=== PATIENT | female | born 1935 | race Caucasian/White ===

== ENCOUNTER → 2017-01-09 | Outpatient (CLI) | payer MEDICARE, OTHER ==
[~2017-01-09] MED LIST: ALLERGY RELIEF10 M1 PO; COLACE100 MG PO; LIPITOR10 MG PO; METFORMIN HCL1000 MG PO; SYNTHROID75 MCG PO; SYSTANE ULTRA 015 ML RIGHT EYE; TYLENOL EXTRA500 MG PO
== END | disposition home or self-care (01) ==
LOC: CDC 11:27
DX: Z01.810 Encounter for preprocedural cardiovascular examination (principal)
CPT/HCPCS: 93000

== ENCOUNTER 2017-01-14 09:33 | Inpatient (IN) | payer OTHER ==
[~2017-01-14] VITALS: Ht 157.5 cm; Wt 51.2 kg
[2017-01-14 10:13] VITALS: BP 144/78
[2017-01-14 10:49] LABS: ANION GAP 12 MEQ/L (2-14); CHLORIDE 95 MEQ/L (99-109); POTASSIUM 4.3 MEQ/L (3.7-5.4); SAMPLE HEMOLYSIS CHECK 0; SAMPLE ICTERIC CHECK 0; SAMPLE LIPEMIA CHECK 0; SODIUM 134 MEQ/L (136-147)
[2017-01-14 10:54] LABS: GFR ESTIMATE (CALCULATED) > 59 mL/min/; GLUCOSE 117 mg/dL (70-99); UREA NITROGEN (BUN) 15 mg/dL (9-23)
[2017-01-14 16:55] LABS: POINT-OF-CARE METER ID UU13113675
[2017-01-14 20:14] LABS: HEMATOCRIT 39.6 % (36.0-46.0)
[2017-01-14 20:15] VITALS: BP 120/69
[2017-01-14 20:18] LABS: MCV 88.6 FL (83-99)
[2017-01-14 23:35] VITALS: BP 111/55
[2017-01-15] VITALS (7 sets, daily range): BP systolic 117–127; BP diastolic 56–61
[2017-01-15 06:20] LABS: HEMATOCRIT 34.4 % (36.0-46.0); MCH 28.1 PG (29.0-34.0); MCHC 33.1 G/DL (30.0-36.0); MCV 84.9 FL (83-99); MEAN PLAT.VOLUME 9.6 uM^3 (9.5-12.4); RBC DIS.WIDTH-CV 15.1 % (11.8-14.6); RBC DIS.WIDTH-SD 47.4 % (39-53); RED BLOOD COUNT 4.05 M/uL (3.80-5.20); WHITE BLOOD COUNT 15.8 K/uL (4.1-10.2)
[2017-01-15 06:24] LABS: PLATELET COUNT 263 K/uL (156-360)
[2017-01-15 06:51] LABS: ANION GAP 8 MEQ/L (2-14); GFR ESTIMATE (CALCULATED) 51 mL/min/; GLUCOSE 124 mg/dL (70-99); POTASSIUM 4.7 MEQ/L (3.7-5.4); SAMPLE HEMOLYSIS CHECK 0; SAMPLE ICTERIC CHECK 0; SAMPLE LIPEMIA CHECK 0; SODIUM 136 MEQ/L (136-147); UREA NITROGEN (BUN) 18 mg/dL (9-23)
[2017-01-15 06:54] LABS: CHLORIDE 105 MEQ/L (99-109)
[2017-01-16 04:00] VITALS: BP 126/58
[2017-01-16 06:23] LABS: POINT-OF-CARE METER ID UU13113725
[2017-01-16 07:10] VITALS: BP 132/60
[2017-01-16 10:34] LABS: BASOPHIL COUNT 0.1 K/uL (0-0.1); EOSINOPHIL COUNT 0.5 K/uL (0-0.3); HEMATOCRIT 28.4 % (36.0-46.0); IMMATURE GRANULOCYTE (%) 0.8 % (0.0-0.7); IMMATURE GRANULOCYTE COUNT 0.1 K/uL; INSTRUMENT ABS NEUTROPHIL CT 14.3 K/uL; LYMPHOCYTE COUNT 1.5 K/uL (1.0-2.8); MCH 28.1 PG (29.0-34.0); MCHC 33.1 G/DL (30.0-36.0); MCV 84.8 FL (83-99); MEAN PLAT.VOLUME 9.3 uM^3 (9.5-12.4); MONOCYTE (%) 5.6 % (3-12); NEUTROPHIL (%) 81.9 % (45-76); NEUTROPHIL COUNT 14.3 K/uL (1.8-6.4); PLATELET COUNT 291 K/uL (156-360); RBC DIS.WIDTH-CV 15.8 % (11.8-14.6); RED BLOOD COUNT 3.35 M/uL (3.80-5.20); WHITE BLOOD COUNT 17.5 K/uL (4.1-10.2)
[2017-01-16 10:59] LABS: ANION GAP 8 MEQ/L (2-14); CHLORIDE 102 MEQ/L (99-109); GFR ESTIMATE (CALCULATED) > 59 mL/min/; GLUCOSE 96 mg/dL (70-99); POTASSIUM 4.2 MEQ/L (3.7-5.4); SAMPLE HEMOLYSIS CHECK 0; SAMPLE ICTERIC CHECK 0; SAMPLE LIPEMIA CHECK 0; SODIUM 135 MEQ/L (136-147); UREA NITROGEN (BUN) 19 mg/dL (9-23)
[2017-01-16 11:10] VITALS: BP 134/63
[2017-01-16 15:30] VITALS: BP 130/61
[2017-01-16 16:45] LABS: POINT-OF-CARE METER ID UU13113725
[2017-01-16 18:15] LABS: POINT-OF-CARE METER ID UU13113725
[2017-01-16 19:38] VITALS: BP 143/71
[2017-01-17 00:39] VITALS: BP 136/71
[2017-01-17 01:14] LABS: POINT-OF-CARE METER ID UU13113725
[2017-01-17 04:26] VITALS: BP 141/68
[2017-01-17 05:38] LABS: POINT-OF-CARE METER ID UU13113725
[2017-01-17 07:20] VITALS: BP 137/66
[2017-01-17 09:35] LABS: MCH 28.6 PG (29.0-34.0); MCHC 34.2 G/DL (30.0-36.0); MCV 83.6 FL (83-99); MEAN PLAT.VOLUME 9.1 uM^3 (9.5-12.4); PLATELET COUNT 324 K/uL (156-360); RBC DIS.WIDTH-CV 16.1 % (11.8-14.6); RBC DIS.WIDTH-SD 49.1 % (39-53); RED BLOOD COUNT 3.11 M/uL (3.80-5.20)
[2017-01-17 10:01] LABS: ANION GAP 6 MEQ/L (2-14); CHLORIDE 99 MEQ/L (99-109); GFR ESTIMATE (CALCULATED) > 59 mL/min/; POTASSIUM 3.6 MEQ/L (3.7-5.4); SAMPLE HEMOLYSIS CHECK 0; SAMPLE ICTERIC CHECK 0; SAMPLE LIPEMIA CHECK 0; SODIUM 133 MEQ/L (136-147); UREA NITROGEN (BUN) 15 mg/dL (9-23)
[2017-01-17 10:03] LABS: GLUCOSE 173 mg/dL (70-99)
[2017-01-17 10:15] LABS: EOSINOPHIL (%) 2.4 % (0-5); EOSINOPHIL COUNT 0.4 K/uL (0-0.3); IMMATURE GRANULOCYTE (%) 1.3 % (0.0-0.7); IMMATURE GRANULOCYTE COUNT 0.2 K/uL; INSTRUMENT ABS NEUTROPHIL CT 13.5 K/uL; LYMPHOCYTE COUNT 1.2 K/uL (1.0-2.8); MONOCYTE (%) 4.3 % (3-12); MONOCYTE COUNT 0.7 K/uL (0-0.8); NEUTROPHIL (%) 84.5 % (45-76); NEUTROPHIL COUNT 13.5 K/uL (1.8-6.4); PLAT.SUFFICIENCY ADEQUATE
[2017-01-17 12:08] LABS: POINT-OF-CARE METER ID UU13113725
[2017-01-17 16:05] VITALS: BP 159/67
[2017-01-17 23:25] VITALS: BP 140/72
[2017-01-18 00:26] LABS: POINT-OF-CARE METER ID UU13113725
[2017-01-18 03:41] VITALS: BP 132/69
[2017-01-18 05:50] LABS: POINT-OF-CARE METER ID UU13113725
[2017-01-18 06:22] LABS: HEMATOCRIT 26.4 % (36.0-46.0); MCH 27.9 PG (29.0-34.0); MCHC 32.6 G/DL (30.0-36.0); MCV 85.7 FL (83-99); NRBC (%) 0.2 /100 WBC (0-0); RBC DIS.WIDTH-CV 16.1 % (11.8-14.6); RBC DIS.WIDTH-SD 50.4 % (39-53); RED BLOOD COUNT 3.08 M/uL (3.80-5.20); WHITE BLOOD COUNT 14.6 K/uL (4.1-10.2)
[2017-01-18 06:45] LABS: ALKALINE PHOSPHATASE 96 IU/L (3-129); ANION GAP 5 MEQ/L (2-14); ANION GAP 7 MEQ/L (2-14); CHLORIDE 97 MEQ/L (99-109); CHLORIDE 99 MEQ/L (99-109); DIRECT BILIRUBIN 0.3 mg/dL (0.0-0.3); GFR ESTIMATE (CALCULATED) > 59 mL/min/; GLUCOSE 147 mg/dL (70-99); GLUCOSE 149 mg/dL (70-99); MAGNESIUM 1.8 mg/dl (1.3-2.7); POTASSIUM 3.3 MEQ/L (3.7-5.4); POTASSIUM 3.5 MEQ/L (3.7-5.4); SAMPLE HEMOLYSIS CHECK 0; SAMPLE ICTERIC CHECK 0; SAMPLE LIPEMIA CHECK 0; SODIUM 131 MEQ/L (136-147); SODIUM 134 MEQ/L (136-147); TOTAL BILIRUBIN 0.6 MG/DL (0.0-1.0); TRIGLYCERIDES 108 MG/DL (Normal: <150); UREA NITROGEN (BUN) 10 mg/dL (9-23)
[2017-01-18 06:49] LABS: PREALBUMIN 3.2 mg/dL (10-40)
[2017-01-18 07:18] LABS: ANISOCYTOSIS 1+; BAND NEUTROPHILS 1.8 % (0-8.0); EOSINOPHIL ABS CT 0.9; EOSINOPHILS 6.1 % (0-5.0); HYPOCHROMASIA 1+; LYMPHOCYTES 4.4 % (15.0-45.0); MEAN PLAT.VOLUME 9.9 uM^3 (9.5-12.4); METAMYELOCYTES 0.9 %; OVALOCYTES 1+; PLAT.SUFFICIENCY ADEQUATE; PLATELET COUNT 374 K/uL (156-360); POIKILOCYTOSIS 1+; POLYCHROMASIA 1+; SEG.NEUTROPHILS 80.7 % (46.0-76.0)
[2017-01-18 08:02] VITALS: BP 142/64
[2017-01-18 12:00] VITALS: BP 142/68
[2017-01-18 16:00] VITALS: BP 145/69
[2017-01-18 17:05] LABS: POINT-OF-CARE METER ID UU13113725
[2017-01-18 19:28] VITALS: BP 137/66
[2017-01-18 23:09] VITALS: BP 131/61
[2017-01-19 03:32] VITALS: BP 132/64
[2017-01-19 06:20] LABS: HEMATOCRIT 28.7 % (36.0-46.0); MCH 28.3 PG (29.0-34.0); MCHC 33.1 G/DL (30.0-36.0); MCV 85.4 FL (83-99); MEAN PLAT.VOLUME 9.5 uM^3 (9.5-12.4); PLATELET COUNT 518 K/uL (156-360); RBC DIS.WIDTH-CV 16.3 % (11.8-14.6); RBC DIS.WIDTH-SD 51.1 % (39-53); RED BLOOD COUNT 3.36 M/uL (3.80-5.20); WHITE BLOOD COUNT 17.6 K/uL (4.1-10.2)
[2017-01-19 06:43] LABS: ANION GAP 7 MEQ/L (2-14); CHLORIDE 99 MEQ/L (99-109); GFR ESTIMATE (CALCULATED) > 59 mL/min/; GLUCOSE 166 mg/dL (70-99); MAGNESIUM 1.6 mg/dl (1.3-2.7); POTASSIUM 3.7 MEQ/L (3.7-5.4); SAMPLE HEMOLYSIS CHECK 0; SAMPLE ICTERIC CHECK 0; SAMPLE LIPEMIA CHECK 0; SODIUM 133 MEQ/L (136-147); TOTAL BILIRUBIN 0.5 MG/DL (0.0-1.0); UREA NITROGEN (BUN) 7 mg/dL (9-23)
[2017-01-19 06:47] LABS: ALKALINE PHOSPHATASE 158 IU/L (3-129)
[2017-01-19 07:02] LABS: ABS NEUTROPHIL COUNT 13.1; ACANTHOCYTES 1+; ATYPICAL LYMPHOCYTE 0.9 %; EOSINOPHIL ABS CT 0.6; EOSINOPHILS 3.5 % (0-5.0); HYPOCHROMASIA 1+; INSTRUMENT ABS NEUTROPHIL CT 12.1 K/uL; LYMPHOCYTES 5.3 % (15.0-45.0); METAMYELOCYTES 0.9 %; OVALOCYTES 1+; PLAT.SUFFICIENCY INCREASED; POIKILOCYTOSIS 1+; SEG.NEUTROPHILS 74.5 % (46.0-76.0)
[2017-01-19 08:46] VITALS: BP 147/71
[2017-01-19 16:23] VITALS: BP 149/67
[2017-01-19 20:13] LABS: ADD MIUA? YES; BILIRUBIN NEGATIVE; BLOOD NEGATIVE; COLOR YELLOW ((YELLOW)); GLUCOSE (STRIP) NEGATIVE; KETONES NEGATIVE; LEUKOCYTES SMALL; NITRITE NEGATIVE; PROTEIN (STRIP) NEGATIVE; SPECIFIC GRAVITY 1.011 (1.000-1.030); UROBILINOGEN 0.2 MG/DL (0.2-1.0)
[2017-01-19 20:36] LABS: BACTERIA NONE SEEN /HPF; EPITHELIAL CELLS 1+ /HPF; MUCUS TRACE /LPF; RED BLOOD CELLS 0-5 /HPF (0-5); UCUL ADDED? NO; WHITE BLOOD CELLS CLUMP RARE /HPF (0-5)
[2017-01-19 21:29] LABS: POINT-OF-CARE METER ID UU13113725
[2017-01-19 23:40] VITALS: BP 125/71
[2017-01-20 03:51] VITALS: BP 136/71
[2017-01-20 06:33] LABS: POINT-OF-CARE METER ID UU13113725
[2017-01-20 07:22] VITALS: BP 148/70
[2017-01-20 11:05] LABS: BASOPHIL COUNT 0.1 K/uL (0-0.1); EOSINOPHIL (%) 2.3 % (0-5); EOSINOPHIL COUNT 0.4 K/uL (0-0.3); HEMATOCRIT 28.5 % (36.0-46.0); IMMATURE GRANULOCYTE (%) 4.8 % (0.0-0.7); IMMATURE GRANULOCYTE COUNT 0.9 K/uL; INSTRUMENT ABS NEUTROPHIL CT 13.4 K/uL; LYMPHOCYTE COUNT 2.3 K/uL (1.0-2.8); MCH 27.9 PG (29.0-34.0); MCV 84.6 FL (83-99); MEAN PLAT.VOLUME 9.3 uM^3 (9.5-12.4); MONOCYTE (%) 11.3 % (3-12); MONOCYTE COUNT 2.2 K/uL (0-0.8); NEUTROPHIL (%) 69.5 % (45-76); NEUTROPHIL COUNT 13.4 K/uL (1.8-6.4); PLATELET COUNT 691 K/uL (156-360); RBC DIS.WIDTH-CV 16.2 % (11.8-14.6); RBC DIS.WIDTH-SD 49.9 % (39-53); RED BLOOD COUNT 3.37 M/uL (3.80-5.20); WHITE BLOOD COUNT 19.3 K/uL (4.1-10.2)
[2017-01-20 11:22] VITALS: BP 147/68
[2017-01-20 11:40] LABS: ALKALINE PHOSPHATASE 120 IU/L (3-129); ANION GAP 7 MEQ/L (2-14); CHLORIDE 96 MEQ/L (99-109); GFR ESTIMATE (CALCULATED) > 59 mL/min/; GLUCOSE 131 mg/dL (70-99); MAGNESIUM 1.6 mg/dl (1.3-2.7); POTASSIUM 3.6 MEQ/L (3.7-5.4); SAMPLE HEMOLYSIS CHECK 0; SAMPLE ICTERIC CHECK 0; SAMPLE LIPEMIA CHECK 0; SODIUM 132 MEQ/L (136-147); TOTAL BILIRUBIN 0.5 MG/DL (0.0-1.0); UREA NITROGEN (BUN) 5 mg/dL (9-23)
[2017-01-20 18:17] VITALS: BP 153/72
[2017-01-20 18:50] VITALS: BP 158/77
[2017-01-20 21:09] LABS: POINT-OF-CARE METER ID UU13113725
[2017-01-20 23:29] VITALS: BP 154/71
[2017-01-21 02:39] VITALS: BP 130/61
[2017-01-21 02:50] VITALS: BP 155/83
[2017-01-21 06:30] LABS: HEMATOCRIT 27.6 % (36.0-46.0); MCHC 32.6 G/DL (30.0-36.0); MCV 82.9 FL (83-99); MEAN PLAT.VOLUME 9.2 uM^3 (9.5-12.4); NRBC (%) 0.1 /100 WBC (0-0); PLATELET COUNT 724 K/uL (156-360); RBC DIS.WIDTH-CV 15.9 % (11.8-14.6); RBC DIS.WIDTH-SD 49.1 % (39-53); RED BLOOD COUNT 3.33 M/uL (3.80-5.20)
[2017-01-21 07:26] VITALS: BP 137/69
[2017-01-21 15:45] VITALS: BP 142/76
[2017-01-21 21:57] LABS: POINT-OF-CARE METER ID UU13113725
[2017-01-22 01:06] VITALS: BP 137/65
[2017-01-22 06:34] LABS: POINT-OF-CARE METER ID UU13113725
[2017-01-22 07:03] LABS: MCH 28.2 PG (29.0-34.0); MCHC 34.3 G/DL (30.0-36.0); MCV 82.2 FL (83-99); MEAN PLAT.VOLUME 8.9 uM^3 (9.5-12.4); RBC DIS.WIDTH-CV 16.4 % (11.8-14.6); RBC DIS.WIDTH-SD 49.1 % (39-53); RED BLOOD COUNT 3.65 M/uL (3.80-5.20); WHITE BLOOD COUNT 21.1 K/uL (4.1-10.2)
[2017-01-22 07:04] LABS: PLATELET COUNT 947 K/uL (156-360)
[2017-01-22 07:24] LABS: ANION GAP 8 MEQ/L (2-14); CHLORIDE 94 MEQ/L (99-109); GFR ESTIMATE (CALCULATED) > 59 mL/min/; GLUCOSE 121 mg/dL (70-99); MAGNESIUM 1.6 mg/dl (1.3-2.7); SAMPLE HEMOLYSIS CHECK 0; SAMPLE ICTERIC CHECK 0; SAMPLE LIPEMIA CHECK 0; SODIUM 131 MEQ/L (136-147); UREA NITROGEN (BUN) 5 mg/dL (9-23)
[2017-01-22 11:27] VITALS: BP 136/76
[2017-01-22 16:57] LABS: POINT-OF-CARE METER ID UU13113675; POINT-OF-CARE USER ID LABLCH83
[2017-01-22 21:10] LABS: POINT-OF-CARE METER ID UU13113725
[2017-01-22 23:43] VITALS: BP 156/83
[2017-01-23 05:47] LABS: POINT-OF-CARE METER ID UU13113725
[2017-01-23 07:27] VITALS: BP 152/75
[2017-01-23 09:01] LABS: MCH 27.9 PG (29.0-34.0); MCHC 33.2 G/DL (30.0-36.0); MEAN PLAT.VOLUME 8.8 uM^3 (9.5-12.4); PLATELET COUNT 953 K/uL (156-360); RBC DIS.WIDTH-CV 17.2 % (11.8-14.6); RBC DIS.WIDTH-SD 52.7 % (39-53); RED BLOOD COUNT 3.69 M/uL (3.80-5.20); WHITE BLOOD COUNT 22.9 K/uL (4.1-10.2)
[2017-01-23 09:20] LABS: ANION GAP 10 MEQ/L (2-14); CHLORIDE 93 MEQ/L (99-109); GFR ESTIMATE (CALCULATED) > 59 mL/min/; GLUCOSE 136 mg/dL (70-99); MAGNESIUM 1.8 mg/dl (1.3-2.7); POTASSIUM 4.2 MEQ/L (3.7-5.4); SAMPLE HEMOLYSIS CHECK 0; SAMPLE ICTERIC CHECK 0; SAMPLE LIPEMIA CHECK 0; SODIUM 131 MEQ/L (136-147); UREA NITROGEN (BUN) 6 mg/dL (9-23)
[2017-01-23 11:34] LABS: POINT-OF-CARE METER ID UU13113725
[2017-01-23 15:47] VITALS: BP 150/71
[2017-01-23 16:12] LABS: POINT-OF-CARE METER ID UU13113725
[2017-01-23 18:10] LABS: INTER. NORMALIZED RATIO 1.3; PROTHROMBIN TIME 13.2 (9.2-11.2); PTT 32.7 (25-32)
[2017-01-23 22:52] VITALS: BP 151/85
[2017-01-24 04:17] VITALS: BP 143/70
[2017-01-24 05:41] LABS: POINT-OF-CARE METER ID UU13113725
[2017-01-24 06:39] LABS: HEMATOCRIT 25.9 % (36.0-46.0); MCV 82.5 FL (83-99); MEAN PLAT.VOLUME 8.6 uM^3 (9.5-12.4); PLATELET COUNT 847 K/uL (156-360); RBC DIS.WIDTH-CV 17.3 % (11.8-14.6); RBC DIS.WIDTH-SD 51.8 % (39-53); RED BLOOD COUNT 3.14 M/uL (3.80-5.20); WHITE BLOOD COUNT 27.9 K/uL (4.1-10.2)
[2017-01-24 07:40] VITALS: BP 143/76
[2017-01-24 11:15] VITALS: BP 157/78
[2017-01-24 14:05] LABS: INTER. NORMALIZED RATIO 1.3; PROTHROMBIN TIME 13.7 (9.2-11.2)
[2017-01-24 17:55] VITALS: BP 142/76
[2017-01-25] VITALS (8 sets, daily range): BP systolic 149–173; BP diastolic 74–84
[2017-01-25 06:43] LABS: INTER. NORMALIZED RATIO 1.2; PROTHROMBIN TIME 12.7 (9.2-11.2)
[2017-01-25 06:44] LABS: PTT 68.5 (25-32)
[2017-01-25 11:48] LABS: POINT-OF-CARE METER ID UU13113725
[2017-01-25 16:49] LABS: POINT-OF-CARE METER ID UU13113725
[2017-01-25 21:02] LABS: POINT-OF-CARE METER ID UU13113725
[2017-01-26] VITALS (8 sets, daily range): BP systolic 156–190; BP diastolic 80–89
[2017-01-26 05:58] LABS: POINT-OF-CARE METER ID UU13113725
[2017-01-26 09:09] LABS: INTER. NORMALIZED RATIO 1.2; PROTHROMBIN TIME 12.3 (9.2-11.2)
[2017-01-26 09:29] LABS: HEMATOCRIT 35.7 % (36.0-46.0); MCH 28.1 PG (29.0-34.0); MCHC 33.3 G/DL (30.0-36.0); MCV 84.4 FL (83-99); NRBC (%) 0.1 /100 WBC (0-0); RBC DIS.WIDTH-CV 17.7 % (11.8-14.6); RBC DIS.WIDTH-SD 54.4 % (39-53); WHITE BLOOD COUNT 19.4 K/uL (4.1-10.2)
[2017-01-26 09:37] LABS: ANION GAP 12 MEQ/L (2-14); CHLORIDE 94 MEQ/L (99-109); GFR ESTIMATE (CALCULATED) > 59 mL/min/; GLUCOSE 110 mg/dL (70-99); POTASSIUM 4.5 MEQ/L (3.7-5.4); SAMPLE HEMOLYSIS CHECK 0; SAMPLE ICTERIC CHECK 0; SAMPLE LIPEMIA CHECK 0; SODIUM 130 MEQ/L (136-147); UREA NITROGEN (BUN) 5 mg/dL (9-23)
[2017-01-26 09:50] LABS: MEAN PLAT.VOLUME 9.7 uM^3 (9.5-12.4); PLAT.SUFFICIENCY INCREASED
[2017-01-26 11:38] LABS: PLATELET COUNT 1177 K/uL (156-360); RED BLOOD COUNT 4.23 M/uL (3.80-5.20)
[2017-01-26 16:26] LABS: POINT-OF-CARE METER ID UU13113725
[2017-01-26 21:29] LABS: POINT-OF-CARE METER ID UU13113725
[2017-01-27 06:27] LABS: HEMATOCRIT 33.8 % (36.0-46.0); MCH 26.9 PG (29.0-34.0); MCHC 32.2 G/DL (30.0-36.0); MCV 83.5 FL (83-99); RBC DIS.WIDTH-CV 17.4 % (11.8-14.6); RBC DIS.WIDTH-SD 53.5 % (39-53); RED BLOOD COUNT 4.05 M/uL (3.80-5.20); WHITE BLOOD COUNT 17.7 K/uL (4.1-10.2)
[2017-01-27 06:33] LABS: INTER. NORMALIZED RATIO 1.3; PROTHROMBIN TIME 13.5 (9.2-11.2)
[2017-01-27 06:58] LABS: ANION GAP 10 MEQ/L (2-14); CHLORIDE 97 MEQ/L (99-109); GFR ESTIMATE (CALCULATED) > 59 mL/min/; GLUCOSE 110 mg/dL (70-99); POTASSIUM 4.5 MEQ/L (3.7-5.4); SAMPLE HEMOLYSIS CHECK 0; SAMPLE ICTERIC CHECK 0; SAMPLE LIPEMIA CHECK 0; SODIUM 133 MEQ/L (136-147); UREA NITROGEN (BUN) 6 mg/dL (9-23)
[2017-01-27 08:04] VITALS: BP 168/88
[2017-01-27 08:26] LABS: MEAN PLAT.VOLUME 8.8 uM^3 (9.5-12.4)
[2017-01-27 08:56] LABS: PLATELET COUNT 1224 K/uL (156-360)
[2017-01-27 12:19] VITALS: BP 164/81
[2017-01-27 14:05] VITALS: BP 148/73
[2017-01-27 15:50] VITALS: BP 157/93
[2017-01-27 19:19] VITALS: BP 153/84
[2017-01-28 00:08] VITALS: BP 162/83
[2017-01-28 00:30] VITALS: BP 145/78
[2017-01-28 04:00] VITALS: BP 136/85
[2017-01-28 10:23] LABS: INTER. NORMALIZED RATIO 1.9; PROTHROMBIN TIME 19.3 (9.2-11.2)
[2017-01-28 17:21] VITALS: BP 140/77
[2017-01-28 21:09] VITALS: BP 141/74
[2017-01-28 23:20] VITALS: BP 138/73
[2017-01-29] VITALS (16 sets, daily range): BP systolic 117–160; BP diastolic 70–87
[2017-01-29 09:11] LABS: HEMATOCRIT 24.7 % (36.0-46.0); MCHC 33.6 G/DL (30.0-36.0); MCV 83.4 FL (83-99); MEAN PLAT.VOLUME 8.8 uM^3 (9.5-12.4); PLATELET COUNT 890 K/uL (156-360)
[2017-01-29 09:13] LABS: RED BLOOD COUNT 2.96 M/uL (3.80-5.20)
[2017-01-29 09:17] LABS: INTER. NORMALIZED RATIO 2.1; PROTHROMBIN TIME 21.5 (9.2-11.2)
[2017-01-29 09:24] LABS: ANION GAP 10 MEQ/L (2-14); CHLORIDE 94 MEQ/L (99-109); GFR ESTIMATE (CALCULATED) > 59 mL/min/; GLUCOSE 176 mg/dL (70-99); POTASSIUM 4.3 MEQ/L (3.7-5.4); SAMPLE HEMOLYSIS CHECK 0; SAMPLE ICTERIC CHECK 0; SAMPLE LIPEMIA CHECK 0; SODIUM 129 MEQ/L (136-147); UREA NITROGEN (BUN) 11 mg/dL (9-23)
[2017-01-29 12:47] LABS: HEMATOCRIT 23.9 % (36.0-46.0); MCV 83.9 FL (83-99)
[2017-01-29 19:56] LABS: HEMATOCRIT 25.9 % (36.0-46.0); MCV 84.1 FL (83-99)
[2017-01-29 21:43] LABS: POINT-OF-CARE METER ID UU13113698
[2017-01-30 03:00] VITALS: BP 140/78
[2017-01-30 07:55] LABS: HEMATOCRIT 23.5 % (36.0-46.0); MCH 28.9 PG (29.0-34.0); MCHC 34.5 G/DL (30.0-36.0); MCV 83.9 FL (83-99); MEAN PLAT.VOLUME 8.9 uM^3 (9.5-12.4); PLATELET COUNT 683 K/uL (156-360); RBC DIS.WIDTH-CV 17.5 % (11.8-14.6); RBC DIS.WIDTH-SD 53.4 % (39-53); WHITE BLOOD COUNT 16.4 K/uL (4.1-10.2)
[2017-01-30 07:56] VITALS: BP 162/81
[2017-01-30 08:04] LABS: INTER. NORMALIZED RATIO 1.9; PROTHROMBIN TIME 20.1 (9.2-11.2)
[2017-01-30 08:20] LABS: ANION GAP 8 MEQ/L (2-14); CHLORIDE 97 MEQ/L (99-109); GFR ESTIMATE (CALCULATED) > 59 mL/min/; GLUCOSE 111 mg/dL (70-99); POTASSIUM 4.3 MEQ/L (3.7-5.4); SAMPLE HEMOLYSIS CHECK 0; SAMPLE ICTERIC CHECK 0; SAMPLE LIPEMIA CHECK 0; SODIUM 130 MEQ/L (136-147); UREA NITROGEN (BUN) 25 mg/dL (9-23)
[2017-01-30 08:23] LABS: POINT-OF-CARE METER ID UU13113781; POINT-OF-CARE USER ID ENVKC36
[2017-01-30 12:02] LABS: POINT-OF-CARE METER ID UU13113781; POINT-OF-CARE USER ID ENVKC36
[2017-01-30 12:45] VITALS: BP 131/80
[2017-01-30 15:46] LABS: POINT-OF-CARE METER ID UU13113819
[2017-01-30 16:53] VITALS: BP 147/76
[2017-01-30 16:56] LABS: POINT-OF-CARE METER ID UU13113698; POINT-OF-CARE USER ID ENVKC36
[2017-01-30 19:37] VITALS: BP 146/75
[2017-01-30 21:22] LABS: POINT-OF-CARE METER ID UU13113781
[2017-01-30 23:21] VITALS: BP 153/80
[2017-01-31 05:24] VITALS: BP 132/67
[2017-01-31 05:36] LABS: HEMATOCRIT 23.8 % (36.0-46.0); MCH 28.1 PG (29.0-34.0); MCHC 32.8 G/DL (30.0-36.0); MCV 85.6 FL (83-99); MEAN PLAT.VOLUME 9.2 uM^3 (9.5-12.4); PLATELET COUNT 737 K/uL (156-360); RBC DIS.WIDTH-CV 17.9 % (11.8-14.6); RBC DIS.WIDTH-SD 54.5 % (39-53); RED BLOOD COUNT 2.78 M/uL (3.80-5.20)
[2017-01-31 06:00] LABS: ANION GAP 7 MEQ/L (2-14); CHLORIDE 99 MEQ/L (99-109); GFR ESTIMATE (CALCULATED) > 59 mL/min/; GLUCOSE 106 mg/dL (70-99); POTASSIUM 4.2 MEQ/L (3.7-5.4); SAMPLE HEMOLYSIS CHECK 0; SAMPLE ICTERIC CHECK 0; SAMPLE LIPEMIA CHECK 0; SODIUM 131 MEQ/L (136-147); UREA NITROGEN (BUN) 16 mg/dL (9-23)
[2017-01-31 06:02] LABS: INTER. NORMALIZED RATIO 1.6; PROTHROMBIN TIME 16.7 (9.2-11.2)
[2017-01-31 07:49] VITALS: BP 142/66
[2017-01-31 12:30] VITALS: BP 159/74
[2017-01-31 12:58] LABS: POINT-OF-CARE METER ID UU13113698
[2017-01-31 16:04] VITALS: BP 125/60
[2017-01-31 16:43] LABS: POINT-OF-CARE METER ID UU13113698
[2017-01-31 19:00] VITALS: BP 153/72
[2017-01-31 22:04] LABS: POINT-OF-CARE METER ID UU13113698
[2017-01-31 23:00] VITALS: BP 140/68
[2017-02-01 03:00] VITALS: BP 138/75
[2017-02-01 05:17] LABS: HEMATOCRIT 23.3 % (36.0-46.0); MCH 29.3 PG (29.0-34.0); MCHC 34.3 G/DL (30.0-36.0); MCV 85.3 FL (83-99); MEAN PLAT.VOLUME 8.7 uM^3 (9.5-12.4); PLATELET COUNT 732 K/uL (156-360); RBC DIS.WIDTH-CV 18.2 % (11.8-14.6); RBC DIS.WIDTH-SD 54.8 % (39-53); RED BLOOD COUNT 2.73 M/uL (3.80-5.20); WHITE BLOOD COUNT 10.5 K/uL (4.1-10.2)
[2017-02-01 05:54] LABS: INTER. NORMALIZED RATIO 1.4; PROTHROMBIN TIME 14.8 (9.2-11.2)
[2017-02-01 05:58] LABS: ANION GAP 6 MEQ/L (2-14); CHLORIDE 98 MEQ/L (99-109); GFR ESTIMATE (CALCULATED) > 59 mL/min/; GLUCOSE 128 mg/dL (70-99); SAMPLE HEMOLYSIS CHECK 0; SAMPLE ICTERIC CHECK 0; SAMPLE LIPEMIA CHECK 0; SODIUM 131 MEQ/L (136-147); UREA NITROGEN (BUN) 12 mg/dL (9-23)
[2017-02-01 07:49] LABS: POINT-OF-CARE METER ID UU13113781
[2017-02-01 08:01] VITALS: BP 139/71
[2017-02-01 12:28] VITALS: BP 130/61
[2017-02-01 16:00] VITALS: BP 146/73
[2017-02-01 19:00] VITALS: BP 134/77
[2017-02-01 22:30] VITALS: BP 153/81
[2017-02-02 03:00] VITALS: BP 145/73
[2017-02-02 05:23] LABS: INTER. NORMALIZED RATIO 1.3; PROTHROMBIN TIME 13.8 (9.2-11.2)
[2017-02-02 07:42] LABS: POINT-OF-CARE METER ID UU13113781
[2017-02-02 07:47] VITALS: BP 131/70
[2017-02-02 12:01] LABS: POINT-OF-CARE METER ID UU13113781
[2017-02-02] MEDS ORDERED: LISINOPRIL5 MG PO (13:14)
[2017-02-02] MEDS ORDERED: METOPROLOL SUCC25 MG PO (13:14)
[2017-02-02] MEDS ORDERED: HYDROCODON-ACE1 EAC7 PO (13:15)
[2017-02-02] MEDS ORDERED: FLONASE16 G1 BOTH NARES (13:15)
[2017-02-02] MEDS ORDERED: ELIQUIS5 MG PO (13:20)
[2017-02-02 16:40] LABS: POINT-OF-CARE METER ID UU13113781
== END 2017-02-02 17:49 | disposition home or self-care (01) | DRG 657 ==
LOC: 2SOUTH → 5EAST 09:33 → 2SOUTH 09:33 → 4EAST 09:33 → 2SOUTH 09:33 → 5EAST 19:34 → EDSTATUS 01-20 08:29 → SDC 01-20 08:29 → 2SOUTH 01-20 08:35 → 5EAST 01-29 13:12 → 4EAST 01-29 16:53
PROVIDERS: Internal Medicine; Nurse Practitioner Adult Health; Physician Assistant; Physician Assistant Surgical; Surgery; Urology
PROC: 30233N1 Transfusion of Nonautologous Red Blood Cells into Peripheral Vein, Percutaneous Approach (ICD-10-PCS; principal; 2017-01-14)
PROC: 0DBE0ZZ Excision of Large Intestine, Open Approach (ICD-10-PCS; principal; 2017-01-14)
PROC: 0TT10ZZ Resection of Left Kidney, Open Approach (ICD-10-PCS; principal; 2017-01-14)
PROC: 0YU80JZ Supplement Left Femoral Region with Synthetic Substitute, Open Approach (ICD-10-PCS; 2017-01-22)
PROC: 0DJ08ZZ Inspection of Upper Intestinal Tract, Via Natural or Artificial Opening Endoscopic (ICD-10-PCS; 2017-01-30)
DX: C64.2 Malignant neoplasm of left kidney, except renal pelvis (principal); J90 Pleural effusion, not elsewhere classified; E87.1 Hypo-osmolality and hyponatremia; I82.412 Acute embolism and thrombosis of left femoral vein; D73.5 Infarction of spleen; K92.0 Hematemesis; N28.0 Ischemia and infarction of kidney; C78.5 Secondary malignant neoplasm of large intestine and rectum; K41.30 Unilateral femoral hernia, with obstruction, without gangrene, not specified as recurrent; E11.9 Type 2 diabetes mellitus without complications; E03.9 Hypothyroidism, unspecified; E78.00 Pure hypercholesterolemia, unspecified; D47.3 Essential (hemorrhagic) thrombocythemia; I10 Essential (primary) hypertension; E87.6 Hypokalemia; J98.11 Atelectasis; K25.9 Gastric ulcer, unspecified as acute or chronic, without hemorrhage or perforation; R63.4 Abnormal weight loss; K20.8 Other esophagitis; Z68.1 Body mass index [BMI] 19.9 or less, adult; Z79.4 Long term (current) use of insulin; D72.829 Elevated white blood cell count, unspecified; Z85.828 Personal history of other malignant neoplasm of skin; K66.0 Peritoneal adhesions (postprocedural) (postinfection); D75.89 Other specified diseases of blood and blood-forming organs
CPT/HCPCS: 70450; 71010; 71020; 71275; 74020; 74176; 74177; 74245; 80048; 80053; 81003; 82248; 82948; 83735; 84100; 84134; 84478; 84630 90; 85014; 85018; 85025; 85025 91; 85027; 85049; 85610; 85730; 86900; 86901; 86920; 87040; 88302; 88307; 89051; 93005; 93971; 94002; 94799; C1781; C9113; J0131; J0330; J0692; J0744; J1100; J1170; J1644; J1815; J1885; J2060; J2405; J2710; J3010; J3480; J7030; J7050; J7120; P9016; P9045; S0030

== ENCOUNTER 2017-04-07 00:18 | Inpatient (IN) | payer OTHER ==
[~2017-04-07] VITALS: Ht 157.5 cm; Wt 44.5 kg
[2017-04-07] VITALS (13 sets, daily range): BP systolic 120–142; BP diastolic 61–75
[~2017-04-07 00:18] MED LIST changes: +ELIQUIS5 MG PO; +FLONASE16 G1 BOTH NARES; +HYDROCODON-ACE1 EAC7 PO; +LISINOPRIL5 MG PO; -METFORMIN HCL1000 MG PO; +METFORMIN HCL500 M4 PO; +METOPROLOL SUCC25 MG PO; +MULTIVITAMIN1 EAC2 PO; +SUTENT12.5 MG PO
[2017-04-07 01:20] LABS: INTER. NORMALIZED RATIO 1.4; PROTHROMBIN TIME 15.6 SEC (10.2-12.9)
[2017-04-07 01:22] LABS: HEMATOCRIT 21.3 % (36.0-46.0); MCH 28.3 PG (29.0-34.0); MCHC 33.3 G/DL (30.0-36.0); MCV 84.9 FL (83-99); MEAN PLAT.VOLUME 8.6 uM^3 (9.5-12.4); PLATELET COUNT 624 K/uL (156-360); RBC DIS.WIDTH-CV 16.2 % (11.8-14.6); RBC DIS.WIDTH-SD 50.2 % (39-53); RED BLOOD COUNT 2.51 M/uL (3.80-5.20); WHITE BLOOD COUNT 14.7 K/uL (4.1-10.2)
[2017-04-07 01:23] LABS: PTT 33.8 SEC (25-37)
[2017-04-07 01:24] LABS: CHLORIDE 98 mEq/L (99-109); POTASSIUM 4.5 mEq/L (3.7-5.4); SODIUM 132 mEq/L (136-147)
[2017-04-07 01:26] LABS: GLUCOSE 116 mg/dL (70-99)
[2017-04-07 01:27] LABS: ANION GAP 14 MEQ/L (2-14)
[2017-04-07 01:30] LABS: GFR ESTIMATE (CALCULATED) > 59 mL/min/
[2017-04-07 01:31] LABS: UREA NITROGEN (BUN) 24 mg/dL (9-23)
[2017-04-07 04:38] LABS: TROP-I INTERPRETATION NEGATIVE; TROPONIN-I < 0.01 ng/mL (0.0-0.30)
[2017-04-07] MEDS ORDERED: SUTENT50 MG PO (05:04)
[2017-04-07 05:22] LABS: ADD MIUA? NO; BILIRUBIN NEGATIVE; BLOOD NEGATIVE; COLOR YELLOW ((YELLOW)); GLUCOSE (STRIP) NEGATIVE; KETONES NEGATIVE; LEUKOCYTES NEGATIVE; NITRITE NEGATIVE; PROTEIN (STRIP) NEGATIVE; SPECIFIC GRAVITY 1.015 (1.000-1.030); UCUL ADDED? NO; UROBILINOGEN 0.2 MG/DL (0.2-1.0)
[2017-04-07 06:40] LABS: POINT-OF-CARE METER ID UU14162508
[2017-04-07 09:25] LABS: HEMATOCRIT 28.6 % (36.0-46.0); MCV 85.9 FL (83-99)
[2017-04-07 09:42] LABS: TOTAL BILIRUBIN 0.2 mg/dL (0.0-1.0)
[2017-04-07 09:43] LABS: ALKALINE PHOSPHATASE 102 IU/L (3-129)
[2017-04-07 11:24] LABS: POINT-OF-CARE METER ID UU14162508
[2017-04-07 15:23] LABS: POINT-OF-CARE METER ID UU14107333
[2017-04-07 16:11] LABS: HEMATOCRIT 26.6 % (36.0-46.0); MCV 84.4 FL (83-99)
[2017-04-07 17:08] LABS: POINT-OF-CARE METER ID UU14208750
[2017-04-07 20:54] LABS: HEMATOCRIT 28.4 % (36.0-46.0); MCV 83.8 FL (83-99)
[2017-04-08 00:03] LABS: POINT-OF-CARE METER ID UU14208750
[2017-04-08 03:30] VITALS: BP 147/70
[2017-04-08 05:24] LABS: POINT-OF-CARE METER ID UU14162508
[2017-04-08 06:14] LABS: HEMATOCRIT 27.5 % (36.0-46.0); MCV 84.1 FL (83-99)
[2017-04-08 06:44] LABS: ALKALINE PHOSPHATASE 82 IU/L (3-129); ANION GAP 9 MEQ/L (2-14); CHLORIDE 103 MEQ/L (99-109); GFR ESTIMATE (CALCULATED) > 59 mL/min/; GLUCOSE 98 mg/dL (70-99); POTASSIUM 4.9 MEQ/L (3.7-5.4); SAMPLE HEMOLYSIS CHECK 0; SAMPLE ICTERIC CHECK 0; SAMPLE LIPEMIA CHECK 0; SODIUM 137 MEQ/L (136-147); UREA NITROGEN (BUN) 12 mg/dL (9-23)
[2017-04-08 06:45] LABS: TOTAL BILIRUBIN 0.5 MG/DL (0.0-1.0)
[2017-04-08 07:31] VITALS: BP 130/64
[2017-04-08 09:41] LABS: HEMATOCRIT 28.5 % (36.0-46.0); MCV 84.6 FL (83-99)
[2017-04-08] MEDS ORDERED: ESTRACE42.5 GM VG (11:17)
[2017-04-08 11:34] VITALS: BP 128/62
[2017-04-08 11:45] LABS: POINT-OF-CARE METER ID UU14162508
[2017-04-08 14:56] LABS: MCV 84.3 FL (83-99)
[2017-04-08 16:00] LABS: POINT-OF-CARE METER ID UU13113675
[2017-04-08 18:22] LABS: POINT-OF-CARE METER ID UU14162508
[2017-04-08 18:30] LABS: POINT-OF-CARE METER ID UU14162508
[2017-04-08 19:45] VITALS: BP 140/67
[2017-04-08 21:33] LABS: HEMATOCRIT 15.8 % (36.0-46.0); MCV 88.3 FL (83-99)
[2017-04-08 23:05] VITALS: BP 133/65
[2017-04-08 23:42] LABS: POINT-OF-CARE METER ID UU14208750
[2017-04-09] VITALS (17 sets, daily range): BP systolic 120–160; BP diastolic 60–80
[2017-04-09 06:18] LABS: POINT-OF-CARE METER ID UU14208750
[2017-04-09 11:34] LABS: POINT-OF-CARE METER ID UU14208750
[2017-04-09 14:09] LABS: HEMATOCRIT 38.5 % (36.0-46.0); MCH 29.7 PG (29.0-34.0); MCHC 34.8 G/DL (30.0-36.0); MCV 85.4 FL (83-99); MEAN PLAT.VOLUME 8.4 uM^3 (9.5-12.4); PLATELET COUNT 519 K/uL (156-360); RBC DIS.WIDTH-CV 15.8 % (11.8-14.6); RED BLOOD COUNT 4.51 M/uL (3.80-5.20); WHITE BLOOD COUNT 11.5 K/uL (4.1-10.2)
[2017-04-09 14:33] LABS: ANION GAP 10 MEQ/L (2-14); CHLORIDE 95 MEQ/L (99-109); GFR ESTIMATE (CALCULATED) > 59 mL/min/; SAMPLE HEMOLYSIS CHECK 0; SAMPLE ICTERIC CHECK 0; SAMPLE LIPEMIA CHECK 0; SODIUM 131 MEQ/L (136-147); UREA NITROGEN (BUN) 9 mg/dL (9-23)
[2017-04-09 14:34] LABS: GLUCOSE 207 mg/dL (70-99); POTASSIUM 3.8 MEQ/L (3.7-5.4)
[2017-04-09 15:02] LABS: MCV 85.4 FL (83-99)
[2017-04-09 16:44] LABS: POINT-OF-CARE METER ID UU14208750
[2017-04-09 21:32] LABS: POINT-OF-CARE METER ID UU14208750
[2017-04-10 03:30] VITALS: BP 146/80
[2017-04-10 05:39] LABS: POINT-OF-CARE METER ID UU14208750
[2017-04-10 06:50] LABS: HEMATOCRIT 37.2 % (36.0-46.0); MCH 30.2 PG (29.0-34.0); MCHC 35.8 G/DL (30.0-36.0); MCV 84.4 FL (83-99); MEAN PLAT.VOLUME 8.4 uM^3 (9.5-12.4); PLATELET COUNT 500 K/uL (156-360); RBC DIS.WIDTH-CV 15.6 % (11.8-14.6); RBC DIS.WIDTH-SD 47.9 % (39-53); RED BLOOD COUNT 4.41 M/uL (3.80-5.20); WHITE BLOOD COUNT 11.2 K/uL (4.1-10.2)
[2017-04-10 07:15] VITALS: BP 158/85
[2017-04-10 12:05] LABS: POINT-OF-CARE METER ID UU14208750
[2017-04-10 15:33] VITALS: BP 141/67
== END 2017-04-10 16:18 | disposition short-term general hospital (02) | DRG 375 ==
LOC: EME 00:18 → 2EAST 03:49 → EDOF 03:49 → ENRESERV 03:54 → 2EAST 05:01
PROVIDERS: Emergency Medicine; Hospitalist; Internal Medicine
PROC: 0DJ08ZZ Inspection of Upper Intestinal Tract, Via Natural or Artificial Opening Endoscopic (ICD-10-PCS; principal; 2017-04-07)
PROC: 30233N1 Transfusion of Nonautologous Red Blood Cells into Peripheral Vein, Percutaneous Approach (ICD-10-PCS; 2017-04-07)
PROC: 0DBL8ZX Excision of Transverse Colon, Via Natural or Artificial Opening Endoscopic, Diagnostic (ICD-10-PCS; 2017-04-08)
DX: C78.5 Secondary malignant neoplasm of large intestine and rectum (principal); K92.1 Melena; C78.6 Secondary malignant neoplasm of retroperitoneum and peritoneum; C64.2 Malignant neoplasm of left kidney, except renal pelvis; D62 Acute posthemorrhagic anemia; N17.9 Acute kidney failure, unspecified; E44.1 Mild protein-calorie malnutrition; E87.1 Hypo-osmolality and hyponatremia; K31.89 Other diseases of stomach and duodenum; D47.3 Essential (hemorrhagic) thrombocythemia; D75.89 Other specified diseases of blood and blood-forming organs; R91.8 Other nonspecific abnormal finding of lung field; I10 Essential (primary) hypertension; D50.9 Iron deficiency anemia, unspecified; R42 Dizziness and giddiness; E03.9 Hypothyroidism, unspecified; E11.9 Type 2 diabetes mellitus without complications; E78.00 Pure hypercholesterolemia, unspecified; E78.5 Hyperlipidemia, unspecified; G43.909 Migraine, unspecified, not intractable, without status migrainosus; M19.90 Unspecified osteoarthritis, unspecified site; Z79.01 Long term (current) use of anticoagulants; Z68.1 Body mass index [BMI] 19.9 or less, adult; Z85.528 Personal history of other malignant neoplasm of kidney; Z85.828 Personal history of other malignant neoplasm of skin; Z86.718 Personal history of other venous thrombosis and embolism; Z90.5 Acquired absence of kidney
CPT/HCPCS: 36415; 71010; 74177; 80048; 80053; 81003; 82948; 84484; 85014; 85018; 85025; 85027; 85610; 85730; 86850; 86900; 86901; 86920; 88305; 93005; 99281; 99285; C9113; J1815; J1940; J3010; J7030; P9016

== ENCOUNTER 2017-05-13 18:47 | Inpatient (IN) | payer OTHER ==
[~2017-05-13] VITALS: Ht 162.6 cm; Wt 64.0 kg
[~2017-05-13 18:47] MED LIST changes: +ESTRACE42.5 GM VG; +MEDICAL MARIJUANA; +SUTENT50 MG PO
[2017-05-13 20:41] LABS: BASOPHIL COUNT 0.1 K/uL (0-0.1); EOSINOPHIL (%) 0.1 % (0-5); IMMATURE GRANULOCYTE (%) 0.8 % (0.0-0.7); IMMATURE GRANULOCYTE COUNT 0.2 K/uL; INSTRUMENT ABS NEUTROPHIL CT 18.8 K/uL; LYMPHOCYTE COUNT 2.4 K/uL (1.0-2.8); MCH 28.8 PG (29.0-34.0); MCHC 31.9 G/DL (30.0-36.0); MCV 90.4 FL (83-99); MEAN PLAT.VOLUME 8.8 uM^3 (9.5-12.4); MONOCYTE (%) 4.6 % (3-12); NEUTROPHIL (%) 83.6 % (45-76); NEUTROPHIL COUNT 18.8 K/uL (1.8-6.4); PLATELET COUNT 689 K/uL (156-360); RBC DIS.WIDTH-CV 15.9 % (11.8-14.6); RBC DIS.WIDTH-SD 52.4 % (39-53); RED BLOOD COUNT 3.54 M/uL (3.80-5.20); WHITE BLOOD COUNT 22.5 K/uL (4.1-10.2)
[2017-05-13 20:51] LABS: INTER. NORMALIZED RATIO 1.1; PROTHROMBIN TIME 12.6 SEC (10.2-12.9)
[2017-05-13] MEDS ORDERED: ROXICODONE5 MG PO (20:55)
[2017-05-13] MEDS ORDERED: PREDNISONE10 MG PO (20:56)
[2017-05-13 21:02] LABS: TROP-I INTERPRETATION NEGATIVE; TROPONIN-I 0.05 ng/mL (0.0-0.30)
[2017-05-13 21:03] LABS: CHLORIDE 97 mEq/L (99-109); POTASSIUM 4.8 mEq/L (3.7-5.4); SODIUM 135 mEq/L (136-147)
[2017-05-13 21:05] LABS: GLUCOSE 130 mg/dL (70-99); PTT 23.4 SEC (25-37)
[2017-05-13 21:06] LABS: ANION GAP 10 MEQ/L (2-14)
[2017-05-13 21:09] LABS: GFR ESTIMATE (CALCULATED) 51 mL/min/
[2017-05-13 21:10] LABS: UREA NITROGEN (BUN) 36 mg/dL (9-23)
[2017-05-14 00:28] VITALS: BP 138/66
[2017-05-14 03:52] VITALS: BP 139/65
[2017-05-14 06:10] LABS: HEMATOCRIT 29.1 % (36.0-46.0); MCH 29.7 PG (29.0-34.0); MCHC 32.6 G/DL (30.0-36.0); MCV 90.9 FL (83-99); PLATELET COUNT 662 K/uL (156-360); RBC DIS.WIDTH-CV 15.9 % (11.8-14.6); RBC DIS.WIDTH-SD 53.1 % (39-53); WHITE BLOOD COUNT 22.3 K/uL (4.1-10.2)
[2017-05-14 06:29] LABS: TROP-I INTERPRETATION NEGATIVE; TROPONIN-I 0.05 ng/mL (0.0-0.30)
[2017-05-14 07:03] LABS: ANION GAP 9 MEQ/L (2-14); CHLORIDE 98 MEQ/L (99-109); GFR ESTIMATE (CALCULATED) > 59 mL/min/; POTASSIUM 4.7 MEQ/L (3.7-5.4); SAMPLE HEMOLYSIS CHECK 0; SAMPLE ICTERIC CHECK 0; SAMPLE LIPEMIA CHECK 0; SODIUM 136 MEQ/L (136-147); UREA NITROGEN (BUN) 35 mg/dL (9-23)
[2017-05-14 07:08] LABS: GLUCOSE 94 mg/dL (70-99)
[2017-05-14 07:31] VITALS: BP 151/73
[2017-05-14 11:39] LABS: INTACT PARATHYROID HORMONE < 6 pg/mL (10-69)
[2017-05-14 12:07] VITALS: BP 142/69
[2017-05-14 12:25] LABS: TROP-I INTERPRETATION NEGATIVE; TROPONIN-I 0.04 ng/mL (0.0-0.30)
[2017-05-14 16:34] VITALS: BP 156/72
[2017-05-14 19:52] VITALS: BP 154/81
[2017-05-15 00:33] VITALS: BP 131/70
[2017-05-15 04:55] VITALS: BP 143/70
[2017-05-15 06:54] LABS: HEMATOCRIT 29.5 % (36.0-46.0); MCH 29.5 PG (29.0-34.0); MCHC 31.9 G/DL (30.0-36.0); MCV 92.5 FL (83-99); MEAN PLAT.VOLUME 8.8 uM^3 (9.5-12.4); PLATELET COUNT 589 K/uL (156-360); RBC DIS.WIDTH-CV 15.9 % (11.8-14.6); RBC DIS.WIDTH-SD 53.3 % (39-53); RED BLOOD COUNT 3.19 M/uL (3.80-5.20); WHITE BLOOD COUNT 25.8 K/uL (4.1-10.2)
[2017-05-15 07:27] VITALS: BP 132/62
[2017-05-15 07:35] LABS: ALKALINE PHOSPHATASE 115 IU/L (3-129); ANION GAP 12 MEQ/L (2-14); CHLORIDE 103 MEQ/L (99-109); GFR ESTIMATE (CALCULATED) > 59 mL/min/; POTASSIUM 4.4 MEQ/L (3.7-5.4); SAMPLE HEMOLYSIS CHECK 0; SAMPLE ICTERIC CHECK 0; SAMPLE LIPEMIA CHECK 0; SODIUM 139 MEQ/L (136-147); TOTAL BILIRUBIN 0.4 MG/DL (0.0-1.0); UREA NITROGEN (BUN) 36 mg/dL (9-23)
[2017-05-15 07:40] LABS: GLUCOSE 166 mg/dL (70-99)
[2017-05-15 11:43] VITALS: BP 129/62
[2017-05-15 16:03] VITALS: BP 112/60
[2017-05-15 23:05] VITALS: BP 123/69
[2017-05-16 07:54] VITALS: BP 132/79
[2017-05-16 10:36] LABS: HEMATOCRIT 25.4 % (36.0-46.0); MCH 29.7 PG (29.0-34.0); MCHC 31.9 G/DL (30.0-36.0); MEAN PLAT.VOLUME 9.6 uM^3 (9.5-12.4); PLATELET COUNT 488 K/uL (156-360); RBC DIS.WIDTH-CV 16.1 % (11.8-14.6); RBC DIS.WIDTH-SD 55.4 % (39-53); RED BLOOD COUNT 2.73 M/uL (3.80-5.20); WHITE BLOOD COUNT 23.5 K/uL (4.1-10.2)
[2017-05-16 11:11] LABS: ALKALINE PHOSPHATASE 96 IU/L (3-129); ANION GAP 9 MEQ/L (2-14); CHLORIDE 106 MEQ/L (99-109); GFR ESTIMATE (CALCULATED) > 59 mL/min/; GLUCOSE 152 mg/dL (70-99); POTASSIUM 3.7 MEQ/L (3.7-5.4); SAMPLE HEMOLYSIS CHECK 0; SAMPLE ICTERIC CHECK 0; SAMPLE LIPEMIA CHECK 0; SODIUM 138 MEQ/L (136-147); UREA NITROGEN (BUN) 31 mg/dL (9-23)
[2017-05-16 11:15] LABS: TOTAL BILIRUBIN 0.3 MG/DL (0.0-1.0)
[2017-05-16] MEDS ORDERED: BISAC-EVAC10 MG PR (15:13)
[2017-05-16] MEDS ORDERED: POLYETHYLENE GL17 GM PO (15:13)
[2017-05-16] MEDS ORDERED: DOCUSATE SODIU100 MG PO (15:13)
[2017-05-16] MEDS ORDERED: OXYCODONE HCL5 MG PO (15:18)
[2017-05-16] MEDS ORDERED: PREDNISONE10 MG PO (15:18)
== END 2017-05-16 18:09 | disposition hospice, home (50) | DRG 641 ==
LOC: EME 18:47 → EDOF 21:40 → 5SOUTH 21:40 → ENRESERV 21:43 → 5SOUTH 23:39
PROVIDERS: Emergency Medicine; Hospitalist; Internal Medicine Nephrology; Nurse Practitioner Adult Health
DX: E83.52 Hypercalcemia (principal); C64.9 Malignant neoplasm of unspecified kidney, except renal pelvis; R64 Cachexia; E86.0 Dehydration; C79.51 Secondary malignant neoplasm of bone; E11.9 Type 2 diabetes mellitus without complications; R91.8 Other nonspecific abnormal finding of lung field; Z68.1 Body mass index [BMI] 19.9 or less, adult; D49.0 Neoplasm of unspecified behavior of digestive system; R62.7 Adult failure to thrive; E03.9 Hypothyroidism, unspecified; Z51.5 Encounter for palliative care; E78.5 Hyperlipidemia, unspecified; D72.829 Elevated white blood cell count, unspecified; Z85.828 Personal history of other malignant neoplasm of skin; Z86.718 Personal history of other venous thrombosis and embolism; Z85.51 Personal history of malignant neoplasm of bladder; Z85.528 Personal history of other malignant neoplasm of kidney; Z90.5 Acquired absence of kidney
CPT/HCPCS: 71010; 73522; 74000; 80048; 80053; 81003; 82306; 83735; 83970; 84484; 85025; 85027; 85610; 85730; 87040; 99281; 99284; J0630; J1644; J2405; J2430; J2930; J3010; J7030; J7040